=== PATIENT | female | born 1975 | race Caucasian/White ===

== ENCOUNTER 2017-03-31 00:55 | Emergency (ER) | payer SELFPAY ==
[2017-03-31 01:00] VITALS: BP 120/85; BMI 23.2
--- NOTE | 2017-03-31 01:31 | DR.GENAD ---
HPI - PCP Primary Care Physician: JOHNNY - HPI Comment HPI Comment: HISTORY MIGRAINE HEADACHE. HAVE PHOTOPHOBIA. NAUSEATED AND VOMITINHG - Complaint/Symptoms Chief Complaint Doctors Comments: MIGRAINE HEADACHE TIMES ONE DAY. WORSE TONIGHT. Chief Complaint:: "I woke up yesterday with a bad migraine and it hasn't gotten better at all. 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 - Family History History of Family Medical Conditions: Yes Family Medical History: Diabetes Mellitus, Cancer, Hypertension - Social History Does patient currently use any type of tobacco product: Yes Have you used tobacco products in the last 12 months: Yes Type of Tobacco Use: Cigarettes Does any household member use tobacco: Yes Alcohol Use: None Do you use any recreational Drugs:: No Lives With: Family Lives Where: Home - infectious screening In the last 2 months have you had wt loss of >10#?: NO Have you had fever, night sweats or hemotysis?: No Have you traveled outside the country in the last 6 months?: No Isolation: Standard ROS - Review of Systems Constitutional: No Symptoms Reported Eyes: Photophobia ENTM: No Symptoms Reported Respiratoy: No Symptoms Reported Cardiovascular: No Symptoms Reported Gastrointestinal/Abdominal: No Symptoms Reported Genitourinary: No Symptoms Reported Neurological: Headache Musculoskeletal: Muscle Pain Integumentary: No Symptoms Reported Hematologic/Lymphatic: No Symptoms Reported Endocrine: No Symptoms Reported All Other Systems: Reviewed and Negative PE - Vital Signs Vitals: Temperature 98.5 F Pulse Rate 97 Respiratory Rate 20 Blood Pressure [Right Arm] 94/56 Blood Pressure [Left Arm] 105/74 Blood Pressure 120/85 O2 Sat by Pulse Oximetry 96 - General Limitations: No Limitations General Appearance: Alert - Head Head Exam: Normal Inspection - Eyes Eye exam: Normal Appearance - ENT ENT Exam: Normal External Ear Exam External Ear Exam: Normal External Inspection TM/Canal Exam: Left Normal Nose Exam: Normal Nose Exam, Sinus Tenderness Mouth Exam: Normal Inspection Throat Exam: Normal Inspection - Neck Neck Exam: Normal Inspection - Chest Chest Inspection: Symmetric Chest Wall Rise - Respiratory Respiratory Exam: Normal Lung Sounds Bilat Respiratory Exam: Bilateral Clear to Auscultation - Cardiovascular Cardiovascular Exam: Regular Rate, Normal Rhythm, Normal Heart Sounds - Abdominal Exam Abdominal Exam: Normal Bowel Sounds, Soft. negative: Tenderness - Extremities Extremities Exam: Normal Inspection - Back Back Exam: Normal Inspection - Neurologic Neurological Exam: Alert, Oriented X3 - Psychiatric Psychiatric Exam: Anxious - Skin Skin Exam: Normal Color MDM - Additional Information Additional Information Obtained From: Family - Differential Diagnosis Differential Diagnosis: MIGRAINE HEADACHE Course - Treatment Treatment: SEE ORDERS - Reevaluation 1st: Improved (IM PAIN MED, HEADACHE IMPROVED.) - Education/Counseling Education/Counseling: Patient, Family, Education Educated On: Treatment, Diagnosis, Needs for Follow Up - Diagnosis Discharge Problem: Migraine Qualifiers: Migraine type: without aura Status migrainosus presence: without status migrainosus Intractability: intractable Qualified Code(s): G43.019 - Migraine without aura, intractable, without status migrainosus - Discharge Plan Disposition: HOME, SELF-CARE Condition: Stable Prescriptions: [id number] [Fioricet Tab] 1 tab PO Q6H PRN #20 tab PRN Reason: Migraine Headache Promethazine HCl [PHENERGAN TAB 25 MG *] 25 mg PO Q6H PRN #15 tab PRN Reason: Nausea/Vomiting - Follow ups/Referrals Follow ups/Referrals: NFD,None [Primary Care Provider] - 3 days - Instructions Instructions: Migraine Headache Additional Instructions: RETURN TO ED IF WORSE.
[2017-03-31] MEDS ORDERED: DEMEROL INJ IM ONE (01:36)
[2017-03-31] MEDS ORDERED: PHENERGAN INJ 25 MG IM ONE (01:38)
[2017-03-31] MEDS ORDERED: PHENERGAN INJ 25 MG ONE (01:42)
[2017-03-31] MEDS ORDERED: DEMEROL INJ ONE (01:42)
== END 2017-03-31 02:10 | disposition home or self-care (01) ==
LOC: ER 00:55
DX: G43.019 Migraine without aura, intractable, without status migrainosus (principal)
CPT/HCPCS: 96372; 99282; J2175; J2550

== ENCOUNTER 2017-04-06 01:12 | Emergency (ER) | payer SELFPAY ==
[2017-04-06 01:28] VITALS: BP 115/70; BMI 22.8
[2017-04-06] MEDS ORDERED: PHENERGAN INJ 25 MG IM ONE (01:54)
[2017-04-06] MEDS ORDERED: MORPHINE SULFATE INJ 4 MG IM ONE (01:54)
--- NOTE | 2017-04-06 01:54 | DR.GENAD ---
HPI - PCP Primary Care Physician: kenan - HPI Comment HPI Comment: HISTORY MIGRAINE HEADACHE. SEVERE HEADAACHE WITH NAUSE AND PHOTOPHOBIA. NO FEVER. NO SINUS CONGESTION. - Complaint/Symptoms Chief Complaint Doctors Comments: MIGRAINE HEADACHE. Chief Complaint:: migraine headache all day and night hurts all the way across front of head. 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 - Family History History of Family Medical Conditions: Yes Family Medical History: Diabetes Mellitus, Cancer, Hypertension - Social History Does patient currently use any type of tobacco product: Yes Have you used tobacco products in the last 12 months: Yes Type of Tobacco Use: Cigarettes Does any household member use tobacco: Yes Alcohol Use: None Do you use any recreational Drugs:: No Lives With: Significant Other Lives Where: Home - infectious screening In the last 2 months have you had wt loss of >10#?: NO Have you had fever, night sweats or hemotysis?: No Have you traveled outside the country in the last 6 months?: No Isolation: Standard ROS - Review of Systems Constitutional: No Symptoms Reported Eyes: Photophobia ENTM: No Symptoms Reported Respiratoy: No Symptoms Reported Cardiovascular: No Symptoms Reported Gastrointestinal/Abdominal: No Symptoms Reported Genitourinary: No Symptoms Reported Neurological: Headache Musculoskeletal: No Symptoms Reported Integumentary: No Symptoms Reported Hematologic/Lymphatic: No Symptoms Reported Endocrine: No Symptoms Reported All Other Systems: Reviewed and Negative PE - Vital Signs Vitals: Temperature 98 F Pulse Rate 89 Respiratory Rate 20 Blood Pressure [Right Arm] 94/56 Blood Pressure [Left Arm] 105/74 Blood Pressure 115/70 O2 Sat by Pulse Oximetry 97 - General Limitations: No Limitations General Appearance: Alert - Head Head Exam: Normal Inspection - Eyes Eye exam: Normal Appearance - ENT ENT Exam: Normal External Ear Exam External Ear Exam: Normal External Inspection TM/Canal Exam: Bilateral Normal Nose Exam: Normal Nose Exam Mouth Exam: Normal Inspection Throat Exam: Normal Inspection - Neck Neck Exam: Normal Inspection - Chest Chest Inspection: Symmetric Chest Wall Rise - Respiratory Respiratory Exam: Normal Lung Sounds Bilat Respiratory Exam: Bilateral Clear to Auscultation - Cardiovascular Cardiovascular Exam: Regular Rate, Normal Rhythm, Normal Heart Sounds - Abdominal Exam Abdominal Exam: Normal Bowel Sounds, Soft. negative: Tenderness - Extremities Extremities Exam: Normal Inspection - Back Back Exam: Normal Inspection - Neurologic Neurological Exam: Alert, Oriented X3, CN II-XII Intact, Normal Gait, Reflexes Normal. negative: Motor Sensory Deficit - Psychiatric Psychiatric Exam: Anxious - Skin Skin Exam: Normal Color MDM - Differential Diagnosis Differential Diagnosis: MIGRAINE HEADACHE, SINUSITIS Course - Treatment Treatment: SEE ORDERS - Reevaluation 1st: Improved - Education/Counseling Education/Counseling: Patient, Education Educated On: Treatment, Diagnosis, Needs for Follow Up - Diagnosis Discharge Problem: Migraine Qualifiers: Migraine type: with aura Status migrainosus presence: without status migrainosus Intractability: intractable Qualified Code(s): G43.119 - Migraine with aura, intractable, without status migrainosus - Discharge Plan Condition: Stable Prescriptions: [id number]-[id number] [Fioricet Tab] 1 tab PO Q8H PRN #20 tab PRN Reason: Migraine Headache Promethazine HCl [PHENERGAN TAB 25 MG *] 25 mg PO Q8H PRN #15 tab PRN Reason: Nausea/Vomiting - Follow ups/Referrals Follow ups/Referrals: NFD,None [Primary Care Provider] - 1 day DONNY FONTAINE [STAFF PHYSICIAN] - 1 day - Instructions Instructions: Migraine Headache, [id number] Additional Instructions: RETURN TO ED IF WORSE.
[2017-04-06] MEDS ORDERED: PHENERGAN INJ 25 MG ONE (01:57)
[2017-04-06] MEDS ORDERED: MORPHINE SULFATE INJ 4 MG ONE (01:57)
== END 2017-04-06 02:25 | disposition home or self-care (01) ==
LOC: ER 01:12
DX: G43.119 Migraine with aura, intractable, without status migrainosus (principal)
CPT/HCPCS: 96372; 99282; J2270; J2550

== ENCOUNTER 2017-04-26 02:10 | Emergency (ER) | payer SELFPAY ==
[2017-04-26 02:16] VITALS: BP 103/67; BMI 25.7
--- NOTE | 2017-04-26 02:24 | DR.EXTPAIN ---
HPI - Time seen Time seen: 02:30 - PCP Primary Care Physician: SEAN COMO - Complaint/Symptoms Chief Complaint:: RIGHT KNEE PAIN FOR A WEEK, "IT FEELS LIKE IT IS GOING TO BURST." Self Treatment fo Chief Complaint: TYLENOL, MOTRIN, OTC - Nurses notes reviewed Nurses Notes Review: Yes - Source History Provided: Patient - Mode of arrival Mode of Arrival: Wheelchair - Timing Onset of Chief Complaint: 04/19/17 - Other history Other History: Hx significant for multiple visits for pain. 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 - Family History History of Family Medical Conditions: Yes Family Medical History: Diabetes Mellitus, Cancer, Hypertension - Social History Type of Tobacco Use: Cigarettes Do you use any recreational Drugs:: No Lives Where: Home - infectious screening Have you traveled outside the country in the last 6 months?: No Isolation: Standard ROS - Review of Systems Constitutional: No Symptoms Reported Eyes: No Symptoms Reported ENTM: No Symptoms Reported Respiratoy: No Symptoms Reported Cardiovascular: No Symptoms Reported Gastrointestinal/Abdominal: No Symptoms Reported Genitourinary: No Symptoms Reported Neurological: No Symptoms Reported Musculoskeletal: Leg (right leg pain sciatica) Integumentary: No Symptoms Reported Hematologic/Lymphatic: No Symptoms Reported Endocrine: No Symptoms Reported Psychiatric: Anxiety PE - Vital Signs Vitals: Temperature 98.1 F Pulse Rate 89 Respiratory Rate 18 Blood Pressure [Right Arm] 94/56 Blood Pressure [Left Arm] 105/74 Blood Pressure 103/67 O2 Sat by Pulse Oximetry 97 - General Limitations: No Limitations General Appearance: Alert, In No Apparent Distress - Head Head Exam: Normal Inspection - Eyes Eye exam: Normal Appearance, EOMI. negative: Scleral Icterus, Conjunctival Injection - ENT ENT Exam: Normal Exam, Normal Oropharynx - Neck Neck Exam: Normal Inspection, Full ROM, Trachea Midline - Chest Chest Inspection: Normal Inspection - Respiratory Respiratory Exam: negative: Accessory Muscle Use, Respiratory Distress - Extremities Extremities Exam: Normal Inspection, Full ROM. negative: Tenderness - Lower Extremities Hip/Pelvis Exam: Normal Inspection, Full ROM. negative: Tenderness, Swelling, Abrasion, Laceration, Ecchymosis, Deformity, Erythema Upper Leg Exam: Normal Inspection, Full ROM. negative: Tenderness, Swelling Knee Exam: Normal Inspection, Full ROM, Tenderness (questionable ligament exam normal). negative: Swelling, Abrasion, Laceration Lower Leg Exam: Normal Inspection, Full ROM. negative: Tenderness, Swelling, Abrasion Neurovascular/Tendon Exam: Pulse Deficit, Motor Deficit Gait Exam: Observed and Normal - Neurological Neurological Exam: Alert, Oriented X3, CN II-XII Intact - Psychiatric Psychiatric Exam: Anxious - Skin Skin Exam: Intact, Normal Color - Diagnosis Discharge Problem: Sciatic leg pain - Discharge Plan Condition: Stable Prescriptions: Indomethacin [Indocin Cap 25 mg] 25 mg PO TID #30 cap - Follow ups/Referrals Follow ups/Referrals: NFD,None [Primary Care Provider] - 3 days - Instructions Instructions: Sciatica
[2017-04-26] MEDS ORDERED: ULTRAM PO ONE (03:18)
[2017-04-26] MEDS ORDERED: ZOFRAN TAB 4 MG PO ONE (03:20)
[2017-04-26] MEDS ORDERED: ZOFRAN TAB 4 MG ONE (03:21)
[2017-04-26] MEDS ORDERED: ULTRAM ONE (03:21)
== END 2017-04-26 03:28 | disposition home or self-care (01) ==
LOC: ER 02:10
DX: M54.31 Sciatica, right side (principal)
CPT/HCPCS: 80307; 99282; S0181; G0434

== ENCOUNTER 2017-11-20 21:55 | Emergency (ER) | payer SELFPAY ==
[2017-11-20 22:04] VITALS: BP 113/71; BMI 24.7
--- NOTE | 2017-11-20 23:29 | DR.GENAD ---
HPI - PCP Primary Care Physician: nfd - HPI Comment HPI Comment: MEDS TAKING SO FAR NOT HELPING HESDACHE. NO FEVER OR SINUS DRAINAGE. - Complaint/Symptoms Chief Complaint Doctors Comments: HEADACHE, HISTORY MIGRAINES. Chief Complaint:: pt states " I've had headache for a couple of days nausea and throwed up. 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 Past Surgical History Comment: tubal - Family History History of Family Medical Conditions: Yes Family Medical History: Diabetes Mellitus, Cancer, Hypertension - Social History Type of Tobacco Use: Cigarettes Does any household member use tobacco: No Alcohol Use: None Do you use any recreational Drugs:: No Lives With: Family Lives Where: Home - infectious screening In the last 2 months have you had wt loss of >10#?: NO Have you had fever, night sweats or hemotysis?: No Have you traveled outside the country in the last 6 months?: No Isolation: Standard ROS - Review of Systems Constitutional: No Symptoms Reported Eyes: Blurred Vision, Photophobia. negative: Eye Pain, Discharge ENTM: No Symptoms Reported. negative: Ear Pain, Nose Discharge, Nose Congestion , Throat Pain Respiratoy: No Symptoms Reported. negative: Productive Cough, Short of Breath, Wheezing, Hemoptysis Cardiovascular: No Symptoms Reported. negative: Chest Pain Gastrointestinal/Abdominal: Nausea, Vomiting. negative: Abdominal Pain Genitourinary: No Symptoms Reported. negative: Dysuria, Frequency, Hematuria Neurological: Headache, Dizziness Musculoskeletal: No Symptoms Reported Integumentary: No Symptoms Reported Hematologic/Lymphatic: No Symptoms Reported Endocrine: No Symptoms Reported All Other Systems: Reviewed and Negative PE - Vital Signs Vitals: Temperature 98.7 F Pulse Rate 80 Respiratory Rate 16 Blood Pressure [Right Arm] 94/56 Blood Pressure [Left Arm] 105/74 Blood Pressure 113/71 O2 Sat by Pulse Oximetry 99 - General Limitations: No Limitations General Appearance: Alert - Head Head Exam: Normal Inspection - Eyes Eye exam: Normal Appearance - ENT ENT Exam: Normal External Ear Exam External Ear Exam: Normal External Inspection TM/Canal Exam: Bilateral Normal Mouth Exam: Normal Inspection Throat Exam: Tonsillar Erythema - Chest Chest Inspection: Symmetric Chest Wall Rise - Respiratory Respiratory Exam: Normal Lung Sounds Bilat Respiratory Exam: Bilateral Clear to Auscultation - Cardiovascular Cardiovascular Exam: Regular Rate, Normal Rhythm, Normal Heart Sounds - Abdominal Exam Abdominal Exam: Normal Bowel Sounds, Soft. negative: Tenderness - Extremities Extremities Exam: Normal Inspection - Back Back Exam: Normal Inspection - Neurologic Neurological Exam: Alert, Oriented X3, CN II-XII Intact, Normal Gait. negative : Motor Sensory Deficit - Psychiatric Psychiatric Exam: Normal Affect, Normal Mood - Skin Skin Exam: Normal Color MDM - Differential Diagnosis Differential Diagnosis: MIGRAINE HEADACHE, SINUISITIS Course - Treatment Treatment: SEE ORDERS. - Education/Counseling Education/Counseling: Patient, Education Educated On: Treatment, Diagnosis, Needs for Follow Up - Diagnosis Discharge Problem: Migraine Qualifiers: Migraine type: with aura Status migrainosus presence: without status migrainosus Intractability: intractable Qualified Code(s): G43.119 - Migraine with aura, intractable, without status migrainosus - Discharge Plan Disposition: 07 AGAINST MEDICAL ADVICE Condition: Stable - Follow ups/Referrals Follow ups/Referrals: NFD,None [Primary Care Provider] - 3 days - Instructions Additional Instructions: PATIENT LEFT BEFORE EVALUATION COMPLETED IMEDIATELY AFTER IM PAIN MED GIVEN.. DISCHARGE AMA.
[2017-11-20] MEDS ORDERED: PHENERGAN INJ 25 MG IM ONE (23:32)
[2017-11-20] MEDS ORDERED: DEMEROL INJ IM ONE (23:32)
[2017-11-20] MEDS ORDERED: PHENERGAN INJ 25 MG ONE (23:38)
[2017-11-20] MEDS ORDERED: DEMEROL INJ ONE (23:38)
== END 2017-11-20 23:45 | disposition left against medical advice (07) ==
LOC: ER 22:07
DX: G43.119 Migraine with aura, intractable, without status migrainosus (principal)
CPT/HCPCS: 96372; 99282; J2175; J2550

== ENCOUNTER 2018-02-07 03:57 | Emergency (ER) | payer SELFPAY ==
[2018-02-07 04:08] VITALS: BP 103/60; BMI 22.6
--- NOTE | 2018-02-07 04:18 | DR.GENAD ---
HPI - PCP Primary Care Physician: NFD - HPI Comment HPI Comment: GETTING WORSE. - Complaint/Symptoms Chief Complaint Doctors Comments: SWELLING, REDMESS AMD PAIN RT ARMPIT. 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 Past Surgical History Comment: TUBAL - Family History History of Family Medical Conditions: Yes Family Medical History: Diabetes Mellitus, Cancer, Hypertension - Social History Does patient currently use any type of tobacco product: Yes Have you used tobacco products in the last 12 months: Yes Type of Tobacco Use: Cigarettes Does any household member use tobacco: Yes Alcohol Use: None Do you use any recreational Drugs:: No Lives With: Family Lives Where: Home - infectious screening In the last 2 months have you had wt loss of >10#?: NO Have you had fever, night sweats or hemotysis?: No Have you traveled outside the country in the last 6 months?: No Isolation: Standard ROS - Review of Systems Constitutional: No Symptoms Reported Eyes: No Symptoms Reported ENTM: No Symptoms Reported Respiratoy: No Symptoms Reported Cardiovascular: No Symptoms Reported Gastrointestinal/Abdominal: No Symptoms Reported Genitourinary: No Symptoms Reported Neurological: No Symptoms Reported Musculoskeletal: Arm (rt axilla abscess) Integumentary: Wound (rt axilla absce) Hematologic/Lymphatic: No Symptoms Reported Endocrine: No Symptoms Reported All Other Systems: Reviewed and Negative PE - Vital Signs Vitals: Temperature 98.6 F Pulse Rate 75 Respiratory Rate 15 Blood Pressure [Right Arm] 94/56 Blood Pressure [Left Arm] 105/74 Blood Pressure 103/60 O2 Sat by Pulse Oximetry 100 - General Limitations: No Limitations General Appearance: Alert - Head Head Exam: Normal Inspection - Eyes Eye exam: Normal Appearance - ENT ENT Exam: Normal External Ear Exam External Ear Exam: Normal External Inspection TM/Canal Exam: Bilateral Normal Nose Exam: Normal Nose Exam Mouth Exam: Normal Inspection - Neck Neck Exam: Trachea Midline - Chest Chest Inspection: Symmetric Chest Wall Rise - Respiratory Respiratory Exam: Normal Lung Sounds Bilat Respiratory Exam: Bilateral Clear to Auscultation - Cardiovascular Cardiovascular Exam: Regular Rate, Normal Rhythm, Normal Heart Sounds - Abdominal Exam Abdominal Exam: Normal Bowel Sounds, Soft. negative: Tenderness - Extremities Extremities Exam: Tenderness (RT AXILLA ABSCESS) - Back Back Exam: Normal Inspection - Neurologic Neurological Exam: Alert, Oriented X3 - Psychiatric Psychiatric Exam: Normal Affect, Normal Mood - Skin Skin Exam: Erythema MDM - Differential Diagnosis Differential Diagnosis: ABSCESS AND CELLULITIS RT AXILLA, Course - Treatment Treatment: SEE ORDERS - Education/Counseling Education/Counseling: Patient, Education Educated On: Diagnosis, Needs for Follow Up - Diagnosis Discharge Problem: Cellulitis - Discharge Plan Condition: Stable Prescriptions: Ibuprofen [MOTRIN TAB 600 MG *] 600 mg PO TID PRN #90 tab PRN Reason: Pain/Inflammation Sulfamethoxazole-Trimethoprim [BACTRIM DS TAB 800/160 MG *] 1 tab PO BID #20 tab - Follow ups/Referrals Follow ups/Referrals: Ney Sharp [STAFF PHYSICIAN] - 2 days NFD,Grace [Primary Care Provider] - 2 days - Instructions Instructions: Abscess, [id number], Cellulitis, Adult, [id number]-[id number] Additional Instructions: RETURN TO ED IF WORSE.
== END 2018-02-07 04:34 | disposition home or self-care (01) ==
LOC: ER 03:57
DX: L03.111 Cellulitis of right axilla (principal)
CPT/HCPCS: 99281

== ENCOUNTER 2018-02-11 03:25 | Emergency (ER) | payer SELFPAY ==
[2018-02-11 03:34] VITALS: BP 100/61; BMI 23.6
--- NOTE | 2018-02-11 03:54 | DR.GENAD ---
HPI - Complaint/Symptoms Chief Complaint Doctors Comments: Patient was treated for an carbuncle four days ago with bactrim, patient states that the lesion has not gone down. The lesion is firm non fluctuant. Chief Complaint:: CYST UNDER RIGHT ARM; PT HAD CYST REMOVED UNDER SAME ARM X 1 MONTH AGO. 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 Past Surgical History Comment: TUBAL - Family History History of Family Medical Conditions: No Family Medical History: Diabetes Mellitus, Cancer, Hypertension - Social History Alcohol Use: None Do you use any recreational Drugs:: No Lives With: Family Lives Where: Home - infectious screening In the last 2 months have you had wt loss of >10#?: NO Have you had fever, night sweats or hemotysis?: No Have you traveled outside the country in the last 6 months?: No Isolation: Standard ROS - Review of Systems Eyes: No Symptoms Reported ENTM: No Symptoms Reported Respiratoy: No Symptoms Reported Cardiovascular: No Symptoms Reported Gastrointestinal/Abdominal: No Symptoms Reported Genitourinary: No Symptoms Reported Neurological: No Symptoms Reported Musculoskeletal: No Symptoms Reported Integumentary: No Symptoms Reported Hematologic/Lymphatic: No Symptoms Reported Endocrine: No Symptoms Reported Psychiatric: No Symptoms Reported All Other Systems: Reviewed and Negative PE - Vital Signs Vitals: Temperature 99.3 F Pulse Rate 70 Respiratory Rate 20 Blood Pressure [Right Arm] 94/56 Blood Pressure [Left Arm] 105/74 Blood Pressure 100/61 O2 Sat by Pulse Oximetry 98 - General Limitations: No Limitations General Appearance: Alert - Head Head Exam: Normal Inspection, Atraumatic - Eyes Eye exam: Normal Appearance, PERRL, EOMI - ENT ENT Exam: Normal Exam External Ear Exam: Normal External Inspection TM/Canal Exam: Bilateral Normal Nose Exam: Normal Nose Exam Mouth Exam: Normal Inspection Throat Exam: Normal Inspection - Neck Neck Exam: Normal Inspection - Chest Chest Inspection: Normal Inspection - Respiratory Respiratory Exam: Normal Lung Sounds Bilat Respiratory Exam: Bilateral Clear to Auscultation - Cardiovascular Cardiovascular Exam: Regular Rate, Normal Rhythm - Abdominal Exam Abdominal Exam: Normal Inspection, Normal Bowel Sounds Abdominal Tenderness: negative: RUQ, RLQ, LUQ, LLQ, Epigastrium, Suprapubic, Diffuse, Mild, Moderate, Severe, Other - Extremities Extremities Exam: Normal Inspection, Full ROM - Back Back Exam: Normal Inspection, Full ROM - Neurologic Neurological Exam: Alert, Oriented X3, CN II-XII Intact - Psychiatric Psychiatric Exam: Normal Affect, Normal Mood - Skin Skin Exam: Warm, Dry, Intact (non fluctuant). negative: Erythema - Diagnosis Discharge Problem: Carbuncle - Discharge Plan Condition: Stable - Follow ups/Referrals Follow ups/Referrals: NFD,None [Primary Care Provider] - 3 days - Instructions
== END 2018-02-11 04:08 | disposition home or self-care (01) ==
LOC: ER 03:25
DX: L02.93 Carbuncle, unspecified (principal)
CPT/HCPCS: 99281; 99282

== ENCOUNTER 2018-04-01 22:34 | Emergency (ER) | payer SELFPAY ==
[2018-04-01 22:43] VITALS: BP 125/77; BMI 23.8
[2018-04-01] MEDS ORDERED: DEMEROL INJ IM ONE (23:29)
[2018-04-01] MEDS ORDERED: PHENERGAN INJ 25 MG IM ONE (23:29)
[2018-04-01] MEDS ORDERED: PHENERGAN INJ 25 MG ONE (23:32)
[2018-04-01] MEDS ORDERED: DEMEROL INJ ONE (23:32)
--- NOTE | 2018-04-01 23:32 | DR.GENAD ---
HPI - PCP Primary Care Physician: NFD - HPI Comment HPI Comment: NO FEVER OR SINUS CONGESTION. NO DYSURIA OR COUGH. HISTORY MIGRAINE HEADACHE. - Complaint/Symptoms Chief Complaint Doctors Comments: MIGRAINE HEADACHE TIMES 3 DAYS. MOTRIN DID NOT HELP PAIN. WORSE TODAY. 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 Past Surgical History Comment: Tubal Ligation 1997 - Family History History of Family Medical Conditions: Yes Family Medical History: Diabetes Mellitus, Cancer - Social History Does patient currently use any type of tobacco product: Yes Have you used tobacco products in the last 12 months: Yes Type of Tobacco Use: Cigarettes How many years tobacco product used: 8 Does any household member use tobacco: Yes Alcohol Use: None Do you use any recreational Drugs:: No Lives With: Significant Other Lives Where: Home - infectious screening In the last 2 months have you had wt loss of >10#?: NO Have you had fever, night sweats or hemotysis?: No Have you traveled outside the country in the last 6 months?: No Isolation: Standard ROS - Review of Systems Constitutional: No Symptoms Reported Eyes: No Symptoms Reported ENTM: No Symptoms Reported. negative: Ear Pain, Nose Discharge, Nose Congestion , Throat Pain Respiratoy: No Symptoms Reported Cardiovascular: No Symptoms Reported Gastrointestinal/Abdominal: No Symptoms Reported Genitourinary: No Symptoms Reported Neurological: Headache Musculoskeletal: No Symptoms Reported Integumentary: No Symptoms Reported Hematologic/Lymphatic: No Symptoms Reported Endocrine: No Symptoms Reported All Other Systems: Reviewed and Negative PE - Vital Signs Vitals: Temperature 97.0 F Pulse Rate 94 Respiratory Rate 96 Blood Pressure [Right Arm] 94/56 Blood Pressure [Left Arm] 105/74 Blood Pressure 125/77 O2 Sat by Pulse Oximetry 97 - General Limitations: No Limitations General Appearance: Alert - Head Head Exam: Normal Inspection - Eyes Eye exam: Normal Appearance - ENT ENT Exam: Normal External Ear Exam External Ear Exam: Normal External Inspection TM/Canal Exam: Bilateral Normal Nose Exam: Normal Nose Exam Mouth Exam: Normal Inspection Throat Exam: Normal Inspection - Neck Neck Exam: Trachea Midline - Chest Chest Inspection: Symmetric Chest Wall Rise - Respiratory Respiratory Exam: Normal Lung Sounds Bilat Respiratory Exam: Bilateral Clear to Auscultation - Cardiovascular Cardiovascular Exam: Regular Rate, Normal Rhythm, Normal Heart Sounds - Abdominal Exam Abdominal Exam: Normal Bowel Sounds, Soft. negative: Tenderness - Extremities Extremities Exam: Normal Inspection - Back Back Exam: Normal Inspection - Neurologic Neurological Exam: Alert, Oriented X3, CN II-XII Intact. negative: Motor Sensory Deficit - Psychiatric Psychiatric Exam: Normal Affect, Normal Mood - Skin Skin Exam: Normal Color MDM - Additional Information Additional Information Obtained From: Family - Differential Diagnosis Differential Diagnosis: MIGRAINE HEADACHE Course - Treatment Treatment: SEE ORDERS. PAIN IMPROVING WITH IM PAIN MED. - Education/Counseling Education/Counseling: Patient, Family, Education Educated On: Diagnosis, Needs for Follow Up - Diagnosis Discharge Problem: Migraine Qualifiers: Migraine type: with aura Status migrainosus presence: without status migrainosus Intractability: intractable Qualified Code(s): G43.119 - Migraine with aura, intractable, without status migrainosus - Discharge Plan Disposition: 01 HOME, SELF-CARE Condition: Stable Prescriptions: [id number] [Fioricet Tab] 1 tab PO Q8H PRN #15 tab PRN Reason: Migraine Headache - Follow ups/Referrals Follow ups/Referrals: Ney Sharp [STAFF PHYSICIAN] - 2 days NFD,None [Primary Care Provider] - 2 days - Instructions Instructions: Migraine Headache Additional Instructions: RETURN TO ED IF WORSE.
== END 2018-04-02 00:17 | disposition home or self-care (01) ==
LOC: ER 22:34
DX: G43.119 Migraine with aura, intractable, without status migrainosus (principal)
CPT/HCPCS: 96372; 99282; 99283; J2175; J2550

== ENCOUNTER 2018-04-22 22:37 | Emergency (ER) | payer SELFPAY ==
[2018-04-22 22:48] VITALS: BP 115/76; BMI 23.8
--- NOTE | 2018-04-22 23:19 | RAD ---
Acute abdomen-supine, upright and chest Indication: Lower back pain constipation Comparison: 01/10/2013 chest radiograph. 03/10/2016 CT abdomen and pelvis Findings: There is no pneumothorax or effusion. Lungs are mildly hyperinflated. Heart size is promine nt. There air-fluid levels in the abdomen, presumably in the colon. No markedly dilated loop of small bowel, free air or pneumatosis seen. Possible left renal stone noted. Impression: 1. Gas and stool in the colon with air-fluid level suggesting colitis or diarrheal illness. Follow-up clinically and radiographically if there is suspected developing obstruction 2. No high-grade obstruction or free air. 3. No acute chest process with prominent heart size and COPD Reported By:
--- NOTE | 2018-04-22 23:26 | DR.GENAD ---
HPI - PCP [facility] Care Phys[facility] - Complaint/Symptoms Chief Complaint Doctors Comments: patient presents with abdominal pain; complains of constipation. Chief Complaint:: LOWER BACK PAIN, CONSTIPATION FOR THE LAST 6-7 DAYS-NO BOWEL MOVEMENT. DONE FLEETS ENEMA YESTERDAY, AND 7 DAYS AGO. OTC MEDS. 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 - Family History History of Family Medical Conditions: Yes Family Medical History: Diabetes Mellitus, Cancer - Social History Type of Tobacco Use: Cigarettes Alcohol Use: None Do you use any recreational Drugs:: No Lives With: Spouse, Significant Other Lives Where: Home - infectious screening Have you traveled outside the country in the last 6 months?: No Isolation: Standard ROS - Review of Systems Eyes: No Symptoms Reported ENTM: No Symptoms Reported Respiratoy: No Symptoms Reported Cardiovascular: No Symptoms Reported Gastrointestinal/Abdominal: No Symptoms Reported Genitourinary: No Symptoms Reported Neurological: No Symptoms Reported Musculoskeletal: No Symptoms Reported Integumentary: No Symptoms Reported Hematologic/Lymphatic: No Symptoms Reported Endocrine: No Symptoms Reported Psychiatric: No Symptoms Reported All Other Systems: Reviewed and Negative PE - Vital Signs Vitals: Temperature 98.0 F Pulse Rate 80 Respiratory Rate 16 Blood Pressure [Right Arm] 94/56 Blood Pressure [Left Arm] 105/74 Blood Pressure 115/76 O2 Sat by Pulse Oximetry 96 - General General Appearance: Alert, In No Apparent Distress - Head Head Exam: Normal Inspection, Atraumatic - Eyes Eye exam: Normal Appearance, PERRL, EOMI - ENT ENT Exam: Normal Exam External Ear Exam: Normal External Inspection TM/Canal Exam: Bilateral Normal Nose Exam: Normal Nose Exam Mouth Exam: Normal Inspection Throat Exam: Normal Inspection - Neck Neck Exam: Normal Inspection - Chest Chest Inspection: Normal Inspection - Respiratory Respiratory Exam: Normal Lung Sounds Bilat Respiratory Exam: Bilateral Clear to Auscultation - Cardiovascular Cardiovascular Exam: Regular Rate, Normal Rhythm - Abdominal Exam Abdominal Exam: Normal Inspection, Tenderness (generalized) Abdominal Tenderness: Diffuse - Extremities Extremities Exam: Normal Inspection, Full ROM - Back Back Exam: Normal Inspection, Full ROM - Neurologic Neurological Exam: Alert, Oriented X3, CN II-XII Intact - Psychiatric Psychiatric Exam: Normal Affect, Normal Mood - Skin Skin Exam: Warm, Dry, Intact Course - Reevaluation 1st: Improved ROR - Labs Reviewed Result Diagrams: 04/22/18 23:54 04/22/18 23:54 Laboratory: WBC 12.1 X10^3/uL (3.6-10.0) H 04/22/18 23:54 RBC 4.16 X10^6/uL (3.5-5.4) 04/22/18 23:54 Hgb 13.4 g/dL (12.0-16.0) 04/22/18 23:54 Hct 38.6 % (36.0-47.0) 04/22/18 23:54 MCV 92.8 fL (80.0-100.0) 04/22/18 23:54 MCH 32.3 pg (27.0-34.0) 04/22/18 23:54 MCHC 34.8 g/dL (33.0-35.0) 04/22/18 23:54 RDW 12.5 % (11.6-16.5) 04/22/18 23:54 Plt Count 295 X10^3/uL (150.0-450.0) 04/22/18 23:54 MPV 6.9 fL (7.4-11.0) L 04/22/18 23:54 Neut % (Auto) 64.7 % (42.0-75.0) 04/22/18 23:54 Lymph % (Auto) 25.0 % (21.0-51.0) 04/22/18 23:54 Parmer % (Auto) 8.5 % (0.0-13.0) 04/22/18 23:54 Eos % (Auto) 1.5 % (0.9-2.9) 04/22/18 23:54 Baso % (Auto) 0.3 % (0.2-1.0) 04/22/18 23:54 Neut # (Auto) 7.9 x10^3/uL (2.2-4.8) H 04/22/18 23:54 Lymph # (Auto) 3.0 X10^3/uL (1.3-2.9) H 04/22/18 23:54 Parmer # (Auto) 1.0 x10^3/uL (0.3-0.8) H 04/22/18 23:54 Eos # (Auto) 0.2 x10^3/uL (0.0-0.2) 04/22/18 23:54 Baso # (Auto) 0.0 X10^3/uL (0.0-0.1) 04/22/18 23:54 Absolute Nucleated RBC 0.0 /100WBC 04/22/18 23:54 Sodium 137 mmol/L (136-145) 04/22/18 23:54 Corrected Sodium TNP 04/22/18 23:54 Potassium 3.4 mmol/L (3.5-5.1) L 04/22/18 23:54 Chloride 99 mmol/L (98-107) 04/22/18 23:54 Carbon Dioxide 30.2 mmol/L (21-32) 04/22/18 23:54 BUN 6 mg/dL (7-18) L 04/22/18 23:54 Creatinine 0.70 mg/dL (0.55-1.02) 04/22/18 23:54 Est GFR (MDRD) Af Amer > 60 (>60) 04/22/18 23:54 Est GFR (MDRD) Non-Af > 60 (>60) 04/22/18 23:54 Glucose 90 mg/dL (65-99) 04/22/18 23:54 Calcium 7.8 mg/dL (8.5-10.1) L 04/22/18 23:54 C-Reactive Protein 66.40 mg/L (0-3.0) H 04/22/18 23:54 - XRAY XRAY Interpreted by: Radiologist (Acute Abdominal series: There is no pneumothorax or effusion. Lungs are mildly hyperinflated. heart size is prominent. There air fluid levels in the abdomen, presumable in the colon. No markedly dilated loop of small bowel,free air or penumtosis seen. Possible left renal stone noted. Impression: Gas and stool in the colon with air fluid level suggesting colitis or diarrheal illness. Follow u clinically and radiographically if there is suspected developing obstruction. No acute chest process with prominent hear size and COPD CT Abd/Pel: There hyperdense renal pyramids bilaterally with scattered small stones likely. More focal 2mm right upper pole and right interpolar renal stones seen on coronal images 33 and 35 in the right kidney. Left lower pole 3-4mm renal stone seen on coronal image 33. There is no hydroureteronephrosis. Mildly dilated right colon with liquid stool suggesting diarrheal illness or colitis.) - Diagnosis Discharge Problem: Left nephrolithiasis, Right nephrolithiasis, Nephrocalcinosis - Discharge Plan Condition: Stable - Follow ups/Referrals Follow ups/Referrals: NFD,None [Primary Care Provider] - 3 days - Instructions
[2018-04-22] MEDS ORDERED: CITROMA PO ONE (23:30)
[2018-04-22] MEDS ORDERED: CITROMA ONE (23:32)
[2018-04-22] MEDS ORDERED: TORADOL 30 MG VIAL IVP ONE (23:46)
[2018-04-22] MEDS ORDERED: TORADOL 30 MG VIAL ONE (23:47)
[2018-04-22] MEDS ORDERED: ZOFRAN INJ 4 MG VIAL ONE (23:47)
[2018-04-22] MEDS ORDERED: ZOFRAN INJ 4 MG VIAL IVP ONE (23:50)
[2018-04-23 00:06] LABS: BASOPHILS % (AUTO) 0.3 % (0.2-1.0); EOSINOPHILS # (AUTO) 0.2 x10^3/uL (0.0-0.2); EOSINOPHILS % (AUTO) 1.5 % (0.9-2.9); HEMATOCRIT 38.6 % (36.0-47.0); HEMOGLOBIN 13.4 g/dL (12.0-16.0); MEAN CORPUSCULAR HEMOGLOBIN 32.3 pg (27.0-34.0); MEAN CORPUSCULAR HGB CONC 34.8 g/dL (33.0-35.0); MEAN CORPUSCULAR VOLUME 92.8 fL (80.0-100.0); MEAN PLATELET VOLUME 6.9 fL (7.4-11.0); MONOCYTES % (AUTO) 8.5 % (0.0-13.0); NEUTROPHILS # (AUTO) 7.9 x10^3/uL (2.2-4.8); NEUTROPHILS % (AUTO) 64.7 % (42.0-75.0); PLATELET COUNT 295 X10^3/uL (150.0-450.0); RED BLOOD COUNT 4.16 X10^6/uL (3.5-5.4); RED CELL DISTRIBUTION WIDTH 12.5 % (11.6-16.5); WHITE BLOOD COUNT 12.1 X10^3/uL (3.6-10.0)
[2018-04-23 00:11] LABS: BLOOD UREA NITROGEN 6 mg/dL (7-18); CALCIUM 7.8 mg/dL (8.5-10.1); CARBON DIOXIDE 30.2 mmol/L (21-32); CHLORIDE 99 mmol/L (98-107); SODIUM 137 mmol/L (136-145); eGFR BLACK RACES > 60 (>60); eGFR NON BLACK RACES > 60 (>60)
--- NOTE | 2018-04-23 00:33 | CT ---
CT abdomen and pelvis without contrast Indication: Lower back pain constipation Comparison: 03/10/2016 radiograph Technique: Helical images through the abdomen and pelvis without contrast. Coronal and sagittal refor mats provided. Findings: Review of bone windows shows minimal spine degenerative change without destructive osseous lesion. Limited images through the lower chest shows no acute abnormality. Abdomen: The liver, gallbladder, spleen, pancreas and adrenal glands are normal for noncontrast study . Stomach and small bowel show no acute abnormality. There is liquid stool and mild dilatation of the right colon. The appendix is not convincingly demonstrated. Vasculature is free of plaque. There hyperdense renal pyramids bilaterally with scattered small stones likely. More focal 2 mm right upper pole and right interpolar renal stones seen on coronal images 33 and 35 in the right kidney. L eft lower pole 3-4 mm renal stone seen on coronal image 33. There is no hydroureteronephrosis. Pelvis: The urinary bladder and rectum are normal. Uterus and adnexa show no acute abnormality. Impression: 1. Medullary nephrocalcinosis and small tiny stones with several large stones described above. 2. No hydronephrosis seen 3. Mildly dilated right colon with liquid stool suggesting diarrheal illness or colitis. Reported By:
== END 2018-04-23 01:00 | disposition home or self-care (01) ==
LOC: ER 22:37
DX: N20.0 Calculus of kidney (principal); E83.59 Other disorders of calcium metabolism; R79.82 Elevated C-reactive protein (CRP); R10.84 Generalized abdominal pain
CPT/HCPCS: 36415; 74022; 74176; 80048; 85025; 86140; 96365; 96374; 96375; 99283; A4222; J1885; J2405